=== PATIENT | male | born 1980 | race Caucasian/White ===

== ENCOUNTER 2017-05-23 09:42 | Emergency (ER) | payer OTHER ==
[~2017-05-23] VITALS: Ht 177.8 cm; Wt 172.4 kg
[2017-05-23 09:45] VITALS: BP 152/87
[2017-05-23] MEDS ORDERED: ATIVAN1 MG PO (10:00)
[2017-05-23] MEDS ORDERED: ZOFRAN ODT4 MG DISSOLVE ×2 (10:00→10:01)
[2017-05-23] MEDS ORDERED: ULTRAM 50MG TAB50 MG PO (10:01)
== END 2017-05-23 10:15 | disposition home or self-care (01) ==
LOC: M.ERS 09:42
DX: R51 Headache (principal); I10 Essential (primary) hypertension; F41.9 Anxiety disorder, unspecified; F32.9 Major depressive disorder, single episode, unspecified